=== PATIENT | male | born 1955 | race Two or more races ===

== ENCOUNTER 2024-08-24 07:09 | Outpatient (CLI) | payer OTHER | END 2024-08-24 07:17 | disposition home or self-care (01) | LOC: RAD 07:09 | PROVIDERS: ATTEND Orthopaedic Surgery | DX: M25.571 Pain in right ankle and joints of right foot (principal); M25.572 Pain in left ankle and joints of left foot; M79.671 Pain in right foot; M79.672 Pain in left foot ==

== ENCOUNTER 2024-09-01 07:06 | Outpatient (CLI) | payer OTHER | END 2024-09-01 07:08 | disposition home or self-care (01) | LOC: NUCLEAR 07:06 | PROVIDERS: ATTEND Orthopaedic Surgery | DX: I73.89 Other specified peripheral vascular diseases (principal) ==

== ENCOUNTER 2024-12-16 11:52 | Outpatient (CLI) | payer OTHER | END 2024-12-16 11:59 | disposition home or self-care (01) | LOC: MRI 11:52 → RAD 11:52 | PROVIDERS: ATTEND Orthopaedic Surgery | DX: M17.11 Unilateral primary osteoarthritis, right knee (principal); M17.0 Bilateral primary osteoarthritis of knee; M21.161 Varus deformity, not elsewhere classified, right knee; M21.162 Varus deformity, not elsewhere classified, left knee | CPT/HCPCS: 73721 ==